=== PATIENT | male | born 1945 | race Caucasian/White ===

== ENCOUNTER 2018-06-12 08:29 | Day surgery (SDC) | payer MEDICARE ==
[~2018-06-12] VITALS: Ht 167.6 cm; Wt 81.8 kg
[2018-06-12 08:48] VITALS: BP 114/69
[2018-06-12] MEDS ORDERED: fentaNYL/PF 50MCG/1 ML 2ML syringe ONE (09:13)
[2018-06-12] MEDS ORDERED: CYCL-394 PO (09:13)
[2018-06-12] MEDS ORDERED: DONE5TAB7 PO (09:13)
[2018-06-12] MEDS ORDERED: DULO60CA45 PO (09:13)
[2018-06-12] MEDS ORDERED: DULO-31 PO (09:14)
[2018-06-12] MEDS ORDERED: MIDAZolam 5mg/5ml vial ONE (09:14)
[2018-06-12] MEDS ORDERED: MEMA5TAB PO (09:14)
[2018-06-12] MEDS ORDERED: TRAM50TA2 PO (09:15)
[2018-06-12] MEDS ORDERED: PRAV40TA3 PO (09:15)
[2018-06-12] MEDS ORDERED: MULT-38 PO (09:16)
[2018-06-12] MEDS ORDERED: CHOL10008 PO (09:16)
[2018-06-12] MEDS ORDERED: DOCU-261 PO (09:17)
[2018-06-12] MEDS ORDERED: MELO-102 PO (09:17)
[2018-06-12] MEDS ORDERED: ASPI-1265 PO (09:17)
[2018-06-12 09:59] VITALS: BP 129/62
[2018-06-12 10:09] VITALS: BP 114/49
[2018-06-12 10:19] VITALS: BP 128/54
== END 2018-06-12 10:35 | disposition home or self-care (01) ==
LOC: GI LAB 08:29
PROVIDERS: ATTEND Specialist
DX: Z12.11 Encounter for screening for malignant neoplasm of colon (principal); K63.5 Polyp of colon; F03.90 Unspecified dementia, unspecified severity, without behavioral disturbance, psychotic disturbance, mood disturbance, and anxiety; Z79.82 Long term (current) use of aspirin; Z79.899 Other long term (current) drug therapy; Z86.010 Personal history of colon polyps; Z86.73 Personal history of transient ischemic attack (TIA), and cerebral infarction without residual deficits
CPT/HCPCS: 45380; J2250; J3010; J7030; A4620; G0500

== ENCOUNTER 2022-11-30 09:07 | Day surgery (SDC) | payer MEDICARE ==
[2022-11-23 10:05] LABS: CLARITY,URINE CLEAR (Clear); COLOR,URINE YELLOW (Yellow); GLUCOSE, URINE NEGATIVE (Neg); KETONES,URINE NEGATIVE (Neg); LEUKOCYTE ESTERASE ,URINE NEGATIVE (Neg); NITRITES, URINE NEGATIVE (Neg); OCCULT BLOOD,URINE NEGATIVE (Neg); PROTEIN,URINE NEGATIVE (Neg); UROBILINOGEN,URINE 0.2 E.U/dL (0.2-1.0)
[2022-11-23 10:06] LABS: BASOPHILS # (AUTO) 0.1 X10'3 (0-0.2); BASOPHILS % (AUTO) 0.9 % (0-1); EOSINOPHILS # (AUTO) 0.4 X10'3 (0-0.9); EOSINOPHILS % (AUTO) 3.8 % (0-6); LYMPHOCYTES # (AUTO) 2.6 X10'3 (1.1-4.8); LYMPHOCYTES % (AUTO) 27.1 % (21-51); MEAN CORPUSCULAR HGB CONC 33.7 g/dL (33.0-36.5); MEAN CORPUSCULAR VOLUME 100.9 FL (78-98); MEAN PLATELET VOLUME 8.4 FL (7.4-10.4); MONOCYTES # (AUTO) 0.8 X10'3 (0-0.9); NEUTROPHILS # (AUTO) 5.8 X10'3 (1.8-7.7); NEUTROPHILS % (AUTO) 60.2 % (42-75); PRE OP HEMOGLOBIN 14.8 g/dL (14.0-17.9); PRE OP PLATELET COUNT 244 X10'3 (140-440); RED BLOOD COUNT 4.36 X10'6 (4.70-6.10); RED CELL DISTRIBUTION WIDTH 14.7 % (11.5-14.5)
[2022-11-23 10:18] LABS: ALBUMIN 3.8 G/DL (3.4-5.0); ALBUMIN/GLOBULIN RATIO 0.9 (1.1-1.5); ALKALINE PHOSPHATASE 92 IU/L (46-116); BLOOD UREA NITROGEN 19 MG/DL (7-18); BUN/CREATININE RATIO 16.2 (5.4-32.0); CALCIUM 9.7 MG/DL (8.5-10.1); CHLORIDE 105 MMOL/L (99-107); CREATININE 1.17 MG/DL (0.60-1.10); PRE OP ALT 43 U/L (30-65); PRE OP ANION GAP 9 (8-16); PRE OP AST 34 U/L (10-37); PRE OP BILIRUB, TOTAL 0.7 MG/DL (0.0-1.0); PRE OP GLUCOSE 110 MG/DL (70-104); PRE OP SODIUM 139 MMOL/L (135-145); TOTAL CARBON DIOXIDE 24.9 MMOL/L (24-32); eGFR 60 ML/MIN
[2022-11-23 10:30] LABS: UA COLLECTION TYPE NON-SPECIFIED
[2022-11-30] VITALS (16 sets, daily range): BP systolic 120–174; BP diastolic 77–105
[~2022-11-30] VITALS: Ht 167.6 cm; Wt 82.6 kg
[~2022-11-30 09:07] MED LIST: ACET-2119 PO; AMLO10TA13 PO; DONE5TAB7 PO; DOXE10CA3 PO; DULO60CA59 PO; LATA2.5D14 EACHEYE; MELO-102 PO; MEMA5TAB PO; MULT-1085 PO; OMEP20CA16 PO; OXYB5TAB16 PO; SENN1TAB82 PO; ceFOXitin 2GM-NS 100mL ADDvant 100 ML IV ONE; famotidine 20mg tablet PO ONE; ringers solution, lacted 1,000 ML IV SCH
[2022-11-30] MEDS ORDERED: BUPIVAcaine 0.5% inj/PF 30 ML ONE (12:12)
[2022-11-30] MEDS ORDERED: FENTANYL CITRATE/PF 50 MCG/1 ML VIAL ONE (12:47)
[2022-11-30] MEDS ORDERED: sevoflurane 250ml liquid IH ONE (12:49)
[2022-11-30] MEDS ORDERED: BUPIVAcaine 0.5% inj/PF 30 ml vial IJ ONE (13:07)
[2022-11-30] MEDS ORDERED: morphine 2 MG/ML inj. syringe IV PRN (13:30)
[2022-11-30] MEDS ORDERED: ringers solution, lacted 1,000 ML IV SCH (13:30)
[2022-11-30] MEDS ORDERED: HYDROmorphone/PF 0.2 MG/ML SYRINGE IV PRN ×2 (13:30)
[2022-11-30] MEDS ORDERED: ondansetron/PF 4mg/2ml inj IV PRN (13:30)
[2022-11-30] MEDS ORDERED: sugammadex 200mg/2ml injection IV ONE (14:00)
--- NOTE | 2022-11-30 14:02 | NUR ---
Received from OR via [facility], accompanied by Anesthesiologist and report given by FRANK Anesthesiologist. PATIENT WAKING UP, DENIES PAIN, V/S WNL, PIV 20G RIGHT FOREARM, ABDOMEN DRESSING C/D/I. Addendum: 11/30/22 at 1416 by Michael Wayne RN Amended: Links added.
[2022-11-30] MEDS ORDERED: labetalol 20mg/4ml (5mg/ml) syringe IV PRN (14:15)
--- NOTE | 2022-11-30 14:40 | NUR ---
MAGGY FROM PHYSICAL THERAPY AT BEDSIDE TO ASSESS AND EVALUATE PATIENT.
[2022-11-30] MEDS ORDERED: neostigmine methylsulfate 1 MG/ML 10ml vial ONE (14:44)
[2022-11-30] MEDS ORDERED: glycopyrrolate 0.2mg/ml inj ONE (14:44)
[2022-11-30] MEDS ORDERED: ondansetron/PF 4mg/2ml inj ONE (14:44)
[2022-11-30] MEDS ORDERED: LIDOcaine 2% (20mg/ml) 5ml vial ONE (14:45)
[2022-11-30] MEDS ORDERED: propofol inj 20 ML IV ONE (14:45)
[2022-11-30] MEDS ORDERED: dexamethasone sod phosphate 4mg/ml inj. ONE (14:45)
[2022-11-30] MEDS ORDERED: rocuronium 10mg/ml inj IV ONE (14:45)
--- NOTE | 2022-11-30 16:22 | NUR ---
ALL DISCHARGE CRITERIA HAS BEEN MET. VSS, PAIN AT A TOLERABLE LEVEL, ABLE TO SAFELY AMBULATE AND TRANSFER SELF. IV TAKEN OUT WITHOUT ANY COMPLICATIONS. ALL DISCHARGE INSTRUCTIONS COVERED WITH PATIENT AND ALL QUESTIONS ANSWERED. PATIENT TAKEN OUT VIA WHEELCHAIR WITH ALL BELONGINGS TO PERSONAL VEHICLE WHERE FAMILY/FRIEND DROVE PATIENT HOME. Addendum: 11/30/22 at 1642 by Michael Wayne RN Amended: Links added.
== END 2022-11-30 16:22 | disposition home or self-care (01) ==
LOC: PAS 09:07
PROVIDERS: ATTEND Surgery
DX: K80.10 Calculus of gallbladder with chronic cholecystitis without obstruction (principal); M19.90 Unspecified osteoarthritis, unspecified site; H40.9 Unspecified glaucoma; E78.00 Pure hypercholesterolemia, unspecified; I10 Essential (primary) hypertension; F32.9 Major depressive disorder, single episode, unspecified; N40.0 Benign prostatic hyperplasia without lower urinary tract symptoms; Z79.899 Other long term (current) drug therapy; Z86.73 Personal history of transient ischemic attack (TIA), and cerebral infarction without residual deficits; Z82.49 Family history of ischemic heart disease and other diseases of the circulatory system; Z83.3 Family history of diabetes mellitus
CPT/HCPCS: 47562; J0694; J1100; J1170; J2270; J2405; J2704; J2710; J3010; J3490; J7030; J7120; S0020; Z7506; Z7508; Z7512; 36415; 80053; 81003; 82948; 85025; A4215; A4615; A4618; A7000

== ENCOUNTER 2022-12-01 17:24 | Inpatient (IN) | payer MEDICARE ==
[~2022-12-01] VITALS: Ht 167.6 cm; Wt 75.0 kg
[~2022-12-01 17:24] MED LIST changes: -ceFOXitin 2GM-NS 100mL ADDvant 100 ML IV ONE; -famotidine 20mg tablet PO ONE; -ringers solution, lacted 1,000 ML IV SCH
[2022-12-01] MEDS ORDERED: iohexol 300mg/ml 100ml inj. ONE (18:19)
[2022-12-01 18:52] LABS: HEMOGLOBIN 13.3 g/dl (14.0-17.9); MEAN PLATELET VOLUME 8.6 FL (7.4-10.4)
[2022-12-01 18:54] LABS: BASOPHILS % (AUTO) 0.1 % (0-1); EOSINOPHILS % (AUTO) 0.3 % (0-6); HEMATOCRIT 40.5 % (42.0-52.0); LYMPHOCYTES # (AUTO) 1.9 X10'3 (1.1-4.8); LYMPHOCYTES % (AUTO) 12.6 % (21-51); MEAN CORPUSCULAR HEMOGLOBIN 33.5 PG (27.0-31.0); MEAN CORPUSCULAR HGB CONC 32.9 g/dL (33.0-36.5); MONOCYTES # (AUTO) 1.1 X10'3 (0-0.9); MONOCYTES % (AUTO) 7.3 % (2-12); NEUTROPHILS # (AUTO) 12.1 X10'3 (1.8-7.7); NEUTROPHILS % (AUTO) 79.7 % (42-75); PLATELET COUNT 200 X10'3 (140-440); RED BLOOD COUNT 3.97 X10'6 (4.70-6.10); RED CELL DISTRIBUTION WIDTH 14.9 % (11.5-14.5); WHITE BLOOD COUNT 15.2 X10'3 (4.5-11.0)
[2022-12-01 19:01] LABS: CLARITY,URINE CLEAR (Clear); COLOR,URINE YELLOW (Yellow); GLUCOSE, URINE NEGATIVE (Neg); KETONES,URINE NEGATIVE (Neg); LEUKOCYTE ESTERASE ,URINE NEGATIVE (Neg); NITRITES, URINE NEGATIVE (Neg); OCCULT BLOOD,URINE TRACE-INTACT (Neg); PH,URINE 5.5 (4.8-8.0); PROTEIN,URINE NEGATIVE (Neg)
[2022-12-01 19:06] LABS: ALANINE AMINOTRANSFERASE 106 U/L (12-78); ALBUMIN 3.4 G/DL (3.4-5.0); ALBUMIN/GLOBULIN RATIO 0.8 (1.1-1.5); ALKALINE PHOSPHATASE 73 IU/L (46-116); ANION GAP 10 (8-16); ASPARTATE AMINO TRANSFERASE 79 U/L (10-37); BLOOD UREA NITROGEN 15 MG/DL (7-18); BUN/CREATININE RATIO 13.4 (5.4-32.0); CALCIUM 9.4 MG/DL (8.5-10.1); CHLORIDE 102 MMOL/L (99-107); CREATININE 1.12 MG/DL (0.60-1.10); ETHANOL < 0.010 GM/DL (0.0-0.010); GLUCOSE 135 MG/DL (70-104); MAGNESIUM 2.1 MG/DL (1.5-2.4); POTASSIUM 3.9 MMOL/L (3.5-5.1); SODIUM 138 MMOL/L (135-145); TOTAL CARBON DIOXIDE 26.2 MMOL/L (24-32); TOTAL PROTEIN 7.5 G/DL (6.4-8.2); eGFR 63 ML/MIN
[2022-12-01 19:10] LABS: UA COLLECTION TYPE CLN CATCH MIDSTREAM
[2022-12-01 19:12] LABS: BACTERIA,URINE FEW /HPF (Neg); RBC,URINE 0-2 /HPF (0-2); SQUAMOUS EPITHELIAL CELL,UR FEW /LPF (FEW); WBC,URINE 0-4 /HPF (0-4)
[2022-12-01 19:22] LABS: AMMONIA < 10 UMOL/L (11-32)
[2022-12-01 19:24] LABS: URINE AMPHETAMINE SCREEN NEGATIVE (Neg); URINE BARBITUATE SCREEN NEGATIVE (Neg); URINE BENZODIAZEPINES SCREEN NEGATIVE (Neg); URINE CANNABINOID SCREEN NEGATIVE (Neg); URINE COCAINE SCREEN NEGATIVE (Neg); URINE METHADONE SCREEN NEGATIVE (Neg); URINE OPIATE SCREEN POSITIVE (Neg); URINE PHENCYCLIDINE SCREEN NEGATIVE (Neg)
[2022-12-01] MEDS ORDERED: piperacillin/tazo 4.5gm/100ml 100 ML IV ONE (19:45)
[2022-12-01] MEDS ORDERED: potassium Cl 20 mEq SR tablet PO PRN ×2 (22:35)
[2022-12-01] MEDS ORDERED: acetaminophen 325mg tablet PO PRN (22:35)
[2022-12-01] MEDS ORDERED: mag hydrox/Alum hydrox/simeth 30ml oral suspension PO PRN (22:35)
[2022-12-01] MEDS ORDERED: magnesium Cl slow-release 64mg tablet PO PRN (22:35)
[2022-12-01] MEDS ORDERED: potassium Cl 40MEQ/1/2NS 520ml 520 ML IV PRN (22:35)
[2022-12-01] MEDS ORDERED: magnesium hydroxide 30ml (MOM) UD suspension PO PRN (22:35)
[2022-12-01] MEDS ORDERED: ondansetron/PF 4mg/2ml inj IV PRN (22:35)
[2022-12-01] MEDS ORDERED: magnesium 4gm in 100ml NS 100 ML IV PRN (22:35)
[2022-12-01] MEDS: normal saline 1000ml 1,000 ML IV SCH (22:55)
[2022-12-02] MEDS ORDERED: LORazepam 2 mg/ml vial IM ONE (01:10)
[2022-12-02 08:01] LABS: BASOPHILS % (AUTO) 0.2 % (0-1); EOSINOPHILS # (AUTO) 0.1 X10'3 (0-0.9); EOSINOPHILS % (AUTO) 0.9 % (0-6); HEMATOCRIT 35.6 % (42.0-52.0); HEMOGLOBIN 11.6 g/dl (14.0-17.9); LYMPHOCYTES # (AUTO) 2.1 X10'3 (1.1-4.8); LYMPHOCYTES % (AUTO) 15.7 % (21-51); MEAN CORPUSCULAR HEMOGLOBIN 33.2 PG (27.0-31.0); MEAN CORPUSCULAR HGB CONC 32.7 g/dL (33.0-36.5); MEAN CORPUSCULAR VOLUME 101.6 FL (78-98); MEAN PLATELET VOLUME 8.5 FL (7.4-10.4); MONOCYTES # (AUTO) 0.9 X10'3 (0-0.9); NEUTROPHILS # (AUTO) 10.2 X10'3 (1.8-7.7); NEUTROPHILS % (AUTO) 76.2 % (42-75); PLATELET COUNT 181 X10'3 (140-440); RED CELL DISTRIBUTION WIDTH 14.7 % (11.5-14.5); WHITE BLOOD COUNT 13.4 X10'3 (4.5-11.0)
[2022-12-02 08:26] LABS: ALANINE AMINOTRANSFERASE 88 U/L (12-78); ALBUMIN 2.9 G/DL (3.4-5.0); ALBUMIN/GLOBULIN RATIO 0.7 (1.1-1.5); ALKALINE PHOSPHATASE 66 IU/L (46-116); ANION GAP 5 (8-16); ASPARTATE AMINO TRANSFERASE 56 U/L (10-37); BILIRUBIN,TOTAL 1.1 MG/DL (0.1-1.0); BLOOD UREA NITROGEN 15 MG/DL (7-18); BUN/CREATININE RATIO 12.8 (5.4-32.0); CALCIUM 8.8 MG/DL (8.5-10.1); CHLORIDE 103 MMOL/L (99-107); CREATININE 1.17 MG/DL (0.60-1.10); GLUCOSE 118 MG/DL (70-104); MAGNESIUM 2.3 MG/DL (1.5-2.4); POTASSIUM 3.7 MMOL/L (3.5-5.1); SODIUM 137 MMOL/L (135-145); TOTAL CARBON DIOXIDE 29.1 MMOL/L (24-32); TOTAL PROTEIN 6.8 G/DL (6.4-8.2); eGFR 60 ML/MIN
[2022-12-02] MEDS: docusate sod 100mg capsule PO SCH ×2 (08:38→20:55)
[2022-12-02] MEDS: pantoprazole 40mg Tablet.DR PO SCH (08:39)
[2022-12-02] MEDS: amLODIPine 5mg tablet PO SCH (08:39)
[2022-12-02] MEDS: multivitamins, therapeutics tablet PO SCH (08:39)
[2022-12-02] MEDS: normal saline 1000ml 1,000 ML IV SCH (11:58)
--- NOTE | 2022-12-02 18:12 | NUR ---
pt pulled his own IV out and states "i dont want that", and refused to allow RN to place a new IV.
[2022-12-02 19:00] VITALS: BP 136/66
[2022-12-02] MEDS ORDERED: oxybutynin 5mg tablet PO SCH (21:00)
[2022-12-02] MEDS: latanoprost 0.005% 2.5ml ophthalmic drops EACHEYE SCH (21:00)
[2022-12-02 22:00] VITALS: BP 138/64
[2022-12-03] MEDS: normal saline 1000ml 1,000 ML IV SCH ×3 (01:15→14:37)
--- NOTE | 2022-12-03 06:23 | NUR ---
Problems reprioritized. Patient report given, questions answered & plan of care reviewed with AYAZ RN.
[2022-12-03 06:41] VITALS: BP 128/70
--- NOTE | 2022-12-03 07:08 | NUR ---
Patient in room [facility]. I have received report from CHENTE WELLS and had the opportunity to ask questions and assume patient care.
[2022-12-03 07:11] LABS: BASOPHILS % (AUTO) 0.4 % (0-1); EOSINOPHILS # (AUTO) 0.2 X10'3 (0-0.9); EOSINOPHILS % (AUTO) 1.5 % (0-6); HEMATOCRIT 38.5 % (42.0-52.0); HEMOGLOBIN 12.8 g/dl (14.0-17.9); LYMPHOCYTES # (AUTO) 1.8 X10'3 (1.1-4.8); LYMPHOCYTES % (AUTO) 16.5 % (21-51); MEAN CORPUSCULAR HEMOGLOBIN 33.5 PG (27.0-31.0); MEAN CORPUSCULAR HGB CONC 33.2 g/dL (33.0-36.5); MEAN CORPUSCULAR VOLUME 100.9 FL (78-98); MEAN PLATELET VOLUME 9.1 FL (7.4-10.4); MONOCYTES # (AUTO) 0.8 X10'3 (0-0.9); MONOCYTES % (AUTO) 7.4 % (2-12); NEUTROPHILS # (AUTO) 8.3 X10'3 (1.8-7.7); NEUTROPHILS % (AUTO) 74.2 % (42-75); PLATELET COUNT 201 X10'3 (140-440); RED BLOOD COUNT 3.81 X10'6 (4.70-6.10); RED CELL DISTRIBUTION WIDTH 14.4 % (11.5-14.5); WHITE BLOOD COUNT 11.1 X10'3 (4.5-11.0)
[2022-12-03 08:02] LABS: ANION GAP 8 (8-16); BILIRUBIN,TOTAL 1.2 MG/DL (0.1-1.0); BLOOD UREA NITROGEN 14 MG/DL (7-18); BUN/CREATININE RATIO 11.8 (5.4-32.0); CALCIUM 9.3 MG/DL (8.5-10.1); CHLORIDE 103 MMOL/L (99-107); CREATININE 1.19 MG/DL (0.60-1.10); GLUCOSE 113 MG/DL (70-104); MAGNESIUM 2.4 MG/DL (1.5-2.4); POTASSIUM 3.9 MMOL/L (3.5-5.1); SODIUM 138 MMOL/L (135-145); TOTAL CARBON DIOXIDE 27.5 MMOL/L (24-32); TOTAL PROTEIN 7.5 G/DL (6.4-8.2); eGFR 59 ML/MIN
[2022-12-03 08:03] LABS: ALANINE AMINOTRANSFERASE 75 U/L (12-78); ALBUMIN/GLOBULIN RATIO 0.7 (1.1-1.5); ALKALINE PHOSPHATASE 81 IU/L (46-116); ASPARTATE AMINO TRANSFERASE 40 U/L (10-37)
[2022-12-03] MEDS: pantoprazole 40mg Tablet.DR PO SCH (08:08)
[2022-12-03] MEDS: multivitamins, therapeutics tablet PO SCH (08:08)
[2022-12-03] MEDS: docusate sod 100mg capsule PO SCH ×2 (08:08→20:27)
[2022-12-03] MEDS: amLODIPine 5mg tablet PO SCH (08:09)
[2022-12-03 11:33] VITALS: BP 122/64
[2022-12-03] MEDS ORDERED: CefTRIAXone/D5W-Rocephin 1gm 50 ML IV ONE (13:00)
[2022-12-03 18:00] VITALS: BP 136/65
--- NOTE | 2022-12-03 18:07 | NUR ---
Problems reprioritized. Patient report given, questions answered & plan of care reviewed with PRUDENCE RN.
--- NOTE | 2022-12-03 18:39 | NUR ---
Patient in room [facility]. I have received report from AYAZ WELLS and had the opportunity to ask questions and assume patient care.
[2022-12-03] MEDS: latanoprost 0.005% 2.5ml ophthalmic drops EACHEYE SCH (20:27)
[2022-12-03 22:00] VITALS: BP 135/61
--- NOTE | 2022-12-04 06:12 | NUR ---
Problems reprioritized. Patient report given, questions answered & plan of care reviewed with AYAZ RN.
[2022-12-04 06:31] LABS: BASOPHILS # (AUTO) 0.1 X10'3 (0-0.2); BASOPHILS % (AUTO) 0.5 % (0-1); EOSINOPHILS # (AUTO) 0.1 X10'3 (0-0.9); EOSINOPHILS % (AUTO) 0.8 % (0-6); HEMATOCRIT 41.3 % (42.0-52.0); LYMPHOCYTES # (AUTO) 2.1 X10'3 (1.1-4.8); LYMPHOCYTES % (AUTO) 17.2 % (21-51); MEAN CORPUSCULAR HGB CONC 33.9 g/dL (33.0-36.5); MEAN CORPUSCULAR VOLUME 100.4 FL (78-98); MEAN PLATELET VOLUME 8.7 FL (7.4-10.4); MONOCYTES # (AUTO) 0.8 X10'3 (0-0.9); MONOCYTES % (AUTO) 6.8 % (2-12); NEUTROPHILS # (AUTO) 9.2 X10'3 (1.8-7.7); NEUTROPHILS % (AUTO) 74.7 % (42-75); PLATELET COUNT 287 X10'3 (140-440); RED BLOOD COUNT 4.11 X10'6 (4.70-6.10); RED CELL DISTRIBUTION WIDTH 14.5 % (11.5-14.5); WHITE BLOOD COUNT 12.3 X10'3 (4.5-11.0)
--- NOTE | 2022-12-04 06:33 | NUR ---
Patient in room [facility]. I have received report from CHENTE WELLS and had the opportunity to ask questions and assume patient care.
[2022-12-04 06:37] LABS: ALANINE AMINOTRANSFERASE 68 U/L (12-78); ALBUMIN 3.1 G/DL (3.4-5.0); ALBUMIN/GLOBULIN RATIO 0.6 (1.1-1.5); ALKALINE PHOSPHATASE 92 IU/L (46-116); ANION GAP 9 (8-16); ASPARTATE AMINO TRANSFERASE 35 U/L (10-37); BLOOD UREA NITROGEN 17 MG/DL (7-18); BUN/CREATININE RATIO 13.1 (5.4-32.0); CHLORIDE 102 MMOL/L (99-107); GLUCOSE 130 MG/DL (70-104); MAGNESIUM 2.2 MG/DL (1.5-2.4); POTASSIUM 3.8 MMOL/L (3.5-5.1); SODIUM 136 MMOL/L (135-145); TOTAL CARBON DIOXIDE 25.4 MMOL/L (24-32); TOTAL PROTEIN 7.9 G/DL (6.4-8.2); eGFR 53 ML/MIN
[2022-12-04 07:00] VITALS: BP 153/73
[2022-12-04] MEDS: multivitamins, therapeutics tablet PO SCH (08:57)
[2022-12-04] MEDS: pantoprazole 40mg Tablet.DR PO SCH (08:58)
[2022-12-04] MEDS: amLODIPine 5mg tablet PO SCH (08:59)
[2022-12-04] MEDS: docusate sod 100mg capsule PO SCH ×2 (08:59→20:43)
[2022-12-04 11:00] VITALS: BP 118/61
[2022-12-04] MEDS ORDERED: CefTRIAXone/D5W-Rocephin 1gm 50 ML IV SCH (13:00)
--- NOTE | 2022-12-04 15:17 | NUR ---
PAGER ID: [phone] MESSAGE: AYAZ SURG [id number] RE: [id number] SERGIO WERE YOU STILL PLANNING ON CHANGING PATIENTS IV ANTIBIOTICS TO ORAL? JUST WANTED TO DOUBLE CHECK BECAUSE HE IS STILL NOT WANTING AN IV SITE. THANKS
[2022-12-04] MEDS ORDERED: levoFLOXACIN 500mg tablet PO ONE (15:29)
[2022-12-04 18:00] VITALS: BP 122/54
--- NOTE | 2022-12-04 18:44 | NUR ---
Problems reprioritized. Patient report given, questions answered & plan of care reviewed with Lana WELLS.
[2022-12-04] MEDS: latanoprost 0.005% 2.5ml ophthalmic drops EACHEYE SCH (20:43)
--- NOTE | 2022-12-04 20:56 | NUR ---
Pt HAD BP OF 177/[address] LEMUS ORDERED ONE TIME DOSE OF NORVASC 5 MG PO.
[2022-12-04] MEDS ORDERED: amLODIPine 5mg tablet PO ONE (21:00)
[2022-12-04 22:00] VITALS: BP 177/66
[2022-12-05 02:00] VITALS: BP 125/68
--- NOTE | 2022-12-05 06:06 | NUR ---
Problems reprioritized. Patient report given, questions answered & plan of care reviewed with RUSSELL JACOME.
--- NOTE | 2022-12-05 06:10 | NUR ---
Patient in room [facility]. I have received report from Lana WELLS and had the opportunity to ask questions and assume patient care.
[2022-12-05 06:16] VITALS: BP 122/44
[2022-12-05 06:54] LABS: BASOPHILS % (AUTO) 0.3 % (0-1); EOSINOPHILS # (AUTO) 0.2 X10'3 (0-0.9); EOSINOPHILS % (AUTO) 1.6 % (0-6); HEMATOCRIT 41.1 % (42.0-52.0); HEMOGLOBIN 13.9 g/dl (14.0-17.9); LYMPHOCYTES # (AUTO) 1.8 X10'3 (1.1-4.8); LYMPHOCYTES % (AUTO) 13.4 % (21-51); MEAN CORPUSCULAR HEMOGLOBIN 34.2 PG (27.0-31.0); MEAN CORPUSCULAR HGB CONC 33.9 g/dL (33.0-36.5); MEAN CORPUSCULAR VOLUME 100.8 FL (78-98); MEAN PLATELET VOLUME 8.4 FL (7.4-10.4); MONOCYTES # (AUTO) 1.1 X10'3 (0-0.9); MONOCYTES % (AUTO) 8.5 % (2-12); NEUTROPHILS # (AUTO) 10.2 X10'3 (1.8-7.7); NEUTROPHILS % (AUTO) 76.2 % (42-75); PLATELET COUNT 301 X10'3 (140-440); RED BLOOD COUNT 4.07 X10'6 (4.70-6.10); RED CELL DISTRIBUTION WIDTH 14.6 % (11.5-14.5); WHITE BLOOD COUNT 13.4 X10'3 (4.5-11.0)
[2022-12-05 07:00] LABS: ALANINE AMINOTRANSFERASE 59 U/L (12-78); ALBUMIN 2.8 G/DL (3.4-5.0); ALBUMIN/GLOBULIN RATIO 0.6 (1.1-1.5); ALKALINE PHOSPHATASE 89 IU/L (46-116); ANION GAP 7 (8-16); ASPARTATE AMINO TRANSFERASE 29 U/L (10-37); BILIRUBIN,TOTAL 1.2 MG/DL (0.1-1.0); BLOOD UREA NITROGEN 17 MG/DL (7-18); CALCIUM 9.2 MG/DL (8.5-10.1); CHLORIDE 101 MMOL/L (99-107); CREATININE 1.31 MG/DL (0.60-1.10); GLUCOSE 138 MG/DL (70-104); MAGNESIUM 2.2 MG/DL (1.5-2.4); POTASSIUM 3.8 MMOL/L (3.5-5.1); SODIUM 137 MMOL/L (135-145); TOTAL CARBON DIOXIDE 28.9 MMOL/L (24-32); TOTAL PROTEIN 7.7 G/DL (6.4-8.2); eGFR 53 ML/MIN
[2022-12-05] MEDS: pantoprazole 40mg Tablet.DR PO SCH (08:27)
[2022-12-05] MEDS: multivitamins, therapeutics tablet PO SCH (08:27)
[2022-12-05] MEDS: docusate sod 100mg capsule PO SCH (08:27)
[2022-12-05] MEDS: amLODIPine 5mg tablet PO SCH (08:28)
[2022-12-05] MEDS ORDERED: levoFLOXACIN 250mg tablet PO SCH (11:00)
[2022-12-05 11:56] VITALS: BP 125/71
--- NOTE | 2022-12-05 15:03 | NUR ---
Patient discharged to [facility], Report was called to Garrick at accepting facility, all questions were answered at this time.
== END 2022-12-05 13:45 | DRG 91 ==
LOC: ER 17:24 → OBSVTOIN 22:40 → INTOOBSV 22:40 → ED HOLD 22:40 → SUR 3N 12-02 19:17
PROVIDERS: ADMIT Family Medicine; ATTEND Family Medicine
PROC: BW251ZZ Computerized Tomography (CT Scan) of Chest, Abdomen and Pelvis using Low Osmolar Contrast (ICD-10-PCS; principal; 2022-12-01)
DX: G92.8 Other toxic encephalopathy (principal); N17.0 Acute kidney failure with tubular necrosis; J98.11 Atelectasis; E78.00 Pure hypercholesterolemia, unspecified; R29.6 Repeated falls; D72.829 Elevated white blood cell count, unspecified; N32.81 Overactive bladder; D53.9 Nutritional anemia, unspecified; T41.45XA Adverse effect of unspecified anesthetic, initial encounter; F03.90 Unspecified dementia, unspecified severity, without behavioral disturbance, psychotic disturbance, mood disturbance, and anxiety; I10 Essential (primary) hypertension; Z82.49 Family history of ischemic heart disease and other diseases of the circulatory system; Z83.3 Family history of diabetes mellitus; Z86.73 Personal history of transient ischemic attack (TIA), and cerebral infarction without residual deficits; Z90.49 Acquired absence of other specified parts of digestive tract; Z79.899 Other long term (current) drug therapy; Y92.89 Other specified places as the place of occurrence of the external cause
CPT/HCPCS: 36415; 70450; 71045; 71260; 74177; 80053; 80305; 80320; 81001; 81003; 82140; 82948; 83605; 83735; 84145; 85025; 85610; 87040; 87081; 88304; 94760; 97116; 97161; 97530; 97535; 99285; A4349; G0378; J0696; J2060; J2543; J3490; J7030; Q9967